=== PATIENT | male | born 1960 | race African-American/Black ===

== ENCOUNTER 2016-07-19 14:08 | Inpatient (IN) | payer OTHER ==
--- NOTE | 2016-07-19 15:26 | PDOC ---
History of Present Illness - General Chief Complaint: Chest Pain Stated Complaint: CHEST PAIN Time Seen by Provider: 07/19/16 14:30 History Source: Patient Exam Limitations: No Limitations - History of Present Illness Initial Comments: 07/19/16 15:45 Patient is a 55 year old male with a PMHx of HTN, HLD, CVA (04/28), alcohol and substance abuse, HIV who is non compliant with medications presents to the ED complaining of right sided chest pain that began last night. Patient describes the pain as sharp intermittent occurring every 2-3 hours lasting for about an hour with a severity of 5/10. Patient admits to taking crack/cocaine every 2 to 3 days with last time being three days ago. He denies shortness of breath, palpitations, diaphoresis He denies fever, chills, nausea, vomiting He denies abdominal pain, diarrhea, constipation He denies headaches, acute visual changes PMHx: HTN, HLD, CVA (04/28), alcohol and substance abuse, HIV PSHx: None MEDS: Refer to ambulatory meds. Allergies: NKDA Social: Smokes 1.5 PPD, crack/cocaine every 2-3 days, denies alcohol use PCP: None Past History - Past Medical History Allergies/Adverse Reactions: Allergies Allergy/AdvReac Type Severity Reaction Status Date / Time No Known Allergies Allergy Verified 07/19/16 14:14 Home Medications: Ambulatory Orders Amlodipine Besylate [Norvasc -] 10 mg PO DAILY #30 tablet 05/21/16 Aspirin Coated [Ecotrin -] 81 mg PO DAILY #30 tablet.ec 05/21/16 Atorvastatin Ca [Lipitor] 20 mg PO HS #30 tablet 05/31/16 Darunavir/Cobicistat [Prezcobix 800 mg-150 mg Tablet] 1 each PO DAILY #30 tablet 05/31/16 Dolutegravir Sodium [Tivicay] 50 mg PO DAILY #30 tablet 05/31/16 Rilpivirine HCl [Edurant] 25 mg PO DAILY #30 tablet 05/31/16 CVA: Yes Diabetes: No HTN: Yes Hypercholesterolemia: Yes - Immunization History Immunization Up to Date: No - Psycho/Social/Smoking Cessation Hx Anxiety: No Suicidal Ideation: No Smoking History: Current every day smoker Have you smoked in the past 12 months: Yes Number of Cigarettes Smoked Daily: 20 Cigars Per Day: 0 'Breaking Loose' booklet given: 08/21/13 Hx Alcohol Use: Yes (no alcohol use since discharged from hospital) Drug/Substance Use Hx: Yes Substance Use Type: Cocaine Hx Substance Use Treatment: No (pt declines) Review of Systems - Review of Systems Constitutional: No: Chills, Diaphoresis, Fever HEENTM: No: Blurred Vision, Double Vision Respiratory: No: Cough, Shortness of Breath, SOB with Exertion, SOB at Rest, Productive cough, Hemoptysis Cardiac (ROS): Yes: Chest Pain (right sided ). No: Edema, Irregular Heart Rate , Lightheadedness, Palpitations, Syncope, Chest Tightness ABD/GI: No: Diarrhea, Nausea, Vomiting : No: Burning, Dysuria, Discharge, Frequency Musculoskeletal: No: Back Pain, Joint Pain Integumentary: No: Erythema, Flushing Neurological: Yes: Numbness, Weakness (left arm). No: Headache, Seizure, Tingling, Tremors Psychiatric: No: Anxiety, Depression Endocrine: No: Intolerance to Cold, Intolerance to Heat Hematologic/Lymphatic: No: Anemia, Blood Clots *Physical Exam - Vital Signs Last Vital Signs Temp Pulse Resp BP Pulse Ox 97.9 F 76 18 134/89 96 07/19/16 14:10 07/19/16 14:10 07/19/16 14:10 07/19/16 14:10 07/19/16 14:10 - Physical Exam General Appearance: Yes: Other (Awake, alert, oriented and in no acute distress ) HEENT: positive: Normal ENT Inspection. negative: Tonsillar Exudate, Tonsillar Erythema Respiratory/Chest: positive: Lungs Clear, Normal Breath Sounds Cardiovascular: positive: Regular Rhythm, Regular Rate, S1, S2. negative: Edema , JVD Gastrointestinal/Abdominal: positive: Normal Bowel Sounds, Soft. negative: Tenderness Extremity: positive: Normal Inspection, Normal Range of Motion Integumentary: positive: Normal Color, Dry, Warm Neurologic: positive: Fully Oriented, Alert, Normal Mood/Affect, Sensory Deficit (right sided upper and lower extremity ), Other (4/5 muscle strength of right upper and lower extremity. 4/5 motor strength of left upper extremity ) Heart Score/ECG Review - History History: Moderately suspicious - Electrocardiogram EKG: Normal - Age Age: 45-65 - Risk Factors Risk Factors Heart Score: Yes Hx Hypercholesterolemia, Yes Hx Hypertension, Yes Smoking History Based on the list above the patient has:: >/=3 risk factors or Hx atherosclerotic disease - Troponin Troponin: </= normal limit - Score Heart Score - Total: 4 - ECG Impressions Comment:: NSR @77 BPM, (-) ST-T elevations or depressions ED Treatment Course - LABORATORY CBC & Chemistry Diagram: 07/19/16 15:30 07/19/16 15:30 - ADDITIONAL ORDERS Additional order review: Laboratory Results 07/19/16 07/19/16 15:30 15:30 Sodium 139 Potassium 4.2 Chloride 104 Carbon Dioxide 28 Anion Gap 7 L BUN 15 D Creatinine 0.9 Creat Clearance w eGFR > 60 Random Glucose 88 Calcium 8.9 Total Bilirubin 0.3 AST 17 D ALT 29 D Alkaline Phosphatase 74 Creatine Kinase 130 Troponin I < 0.02 Total Protein 8.1 Albumin 3.8 07/19/16 15:30 RBC 4.99 MCV 90.7 MCHC 32.6 RDW 13.6 MPV 7.4 L Neutrophils % 59.9 Lymphocytes % 23.2 Monocytes % 14.6 H Eosinophils % 1.1 D Basophils % 1.2 - RADIOLOGY Radiology Studies Ordered: Category Date Time Status HEAD CT (STROKE) [CT] Stat CT Scan 07/19/16 16:38 Completed CHEST X-RAY PORTABLE* [RAD] Stat Radiology 07/19/16 15:26 Completed Medical Decision Making - Medical Decision Making 07/19/16 15:45 Patient is a 55 year old male with a significant PMHx of HTN, HLD, CVA (04/28), HIV who is non compliant with his medications who presents to the ED complaining of nonradiating, intermittent, sharp right sided chest pain that began last night associated with left arm weakness. Differential diagnosis include but not limited to ACS, Acute stroke, Hematoma, hemorrhage, TIA ED Course and Treatment: -CBC -CMP -EKG -Chest x-ray -Cardiac profile 07/19/16 16:48 -Chest x-ray negative for acute pathology -Labs wnl with negative troponins -Patient now complains of left arm weakness -Head CT ordered to rule out acute stroke 07/19/16 18:30 -CT Negative for acute pathology -Patient still complains of left arm weakness -Chest pain resolved -Will call hospitalist 07/19/16 19:00 -Case discussed with hospitalist who accept patient their services *DC/Admit/Observation/Transfer Diagnosis at time of Disposition: Paresthesia and pain of left extremity Chest pain Qualifiers: Chest pain type: unspecified Qualified Code(s): R07.9 - Chest pain, unspecified - Discharge Dispostion Admit: Yes
[2016-07-19 16:34] LABS: BASOPHIL 1.2 % (0-2.0); EOSINOPHIL 1.1 % (0-4.5); MCH 29.6 pg (25.7-33.7); MCHC 32.6 g/dl (32.0-35.9); MEAN CELL VOLUME 90.7 fl (80-96); MEAN PLT VOLUME 7.4 fl (7.5-11.1); NEUTROPHILS 59.9 % (42.8-82.8); PLATELET COUNT 311 K/MM3 (134-434); RDW 13.6 % (11.9-15.9); WHITE BLOOD COUNT 6.1 K/mm3 (4.0-10.0)
[2016-07-19 17:09] VITALS: BMI 23.7
[2016-07-19 17:18] LABS: ALBUMIN 3.8 g/dl (3.4-5.0); ALK PHOS 74 U/L (45-117); ANION GAP 7 (8-16); BILIRUBIN,TOTAL 0.3 mg/dL (0.2-1.0); CALCIUM 8.9 mg/dL (8.5-10.1); CO2 28 mmol/L (21-32); CREATININE 0.9 mg/dL (0.7-1.3); GLUCOSE,RANDOM 88 mg/dL (74-106); SGOT/AST 17 U/L (15-37); SGPT/ALT 29 U/L (12-78); TOT PROT 8.1 g/dl (6.4-8.2); TROPONIN I < 0.02 ng/ml (0.00-0.05)
--- NOTE | 2016-07-19 18:33 | PDOC ---
Attending Attestation - Resident Resident Name: Elvia Ochoaeen - ED Attending Attestation I have performed the following: I have examined & evaluated the patient, The case was reviewed & discussed with the resident, I agree w/resident's findings & plan, Exceptions are as noted - HPI HPI: 55 yo M history HTN, CVA, substance abuse, HIV presents with chest pain radiating down his left arm for the past 3 days. He states that he had a recent stroke with residual R-sided weakness. He has history of medication noncompliance, is not sure if he was supposed to take any additional medication after the stroke. He did not initially seek attention when he developed symptoms in his left arm, but states that he is concerned that it feels numb, and that he might have another stroke. Chest pain does not change with activity. No SOB, cough, N/V, diaphoresis. - Physicial Exam PE: GENERAL: Awake, alert, and fully oriented, in no acute distress HEAD: No signs of trauma EYES: PERRLA, EOMI, sclera anicteric, conjunctiva clear ENT: Auricles normal inspection, hearing grossly normal, nares patent, oropharynx clear without exudates. Moist mucosa NECK: Normal ROM, supple, no lymphadenopathy, JVD, or masses LUNGS: Breath sounds equal, clear to auscultation bilaterally. No wheezes, and no crackles HEART: Regular rate and rhythm, normal S1 and S2, no murmurs, rubs or gallops ABDOMEN: Soft, nontender, normoactive bowel sounds. No guarding, no rebound. No masses EXTREMITIES: Normal range of motion, no edema. No clubbing or cyanosis. No cords , erythema, or tenderness NEUROLOGICAL: Cranial nerves II through XII grossly intact. Normal speech, normal gait SKIN: Warm, Dry, normal turgor, no rashes or lesions noted. - Medical Decision Making Pt is high risk for ACS, CVA based on his past history and social history. Will obtain CXR, EKG, Padma, and CTH. Admit.
--- NOTE | 2016-07-19 19:43 | HP ---
CHIEF COMPLAINT: Chest Pain, Left Upper Arm Weakness PCP: Dr. Cristhian Barrow HISTORY OF PRESENT ILLNESS: This is a 55 year old male with a past medical history of: Hypertension, Hyperlipidemia, CVA (R-residual, 04/2016), HIV (non-compliant HAART), Poly Substance Abuse- Crack Cocaine, Alcohol). Who presents to the Emergency Department with mid-sternal Chest Pain x last night, L- upper arm weakness x 2 weeks. Patient reports using Crack Cocaine and drinking Alcohol- Vodka (pint) 2 days ago. Patient reports the chest pain started at rest non-radiating, sharp in quality. Patient reports constant numbness to his left upper arm for 2 weeks. Patient denies left sided facial droop or numbness to his left lower leg. Patient denies fever, chills, cough, SOB, dizziness, AP, N/V/D, constipation, melena, hematuria, dysuria. ER course was notable for: (1) CT Brain-mild volume loss, focal encephalomalacia in the left periventicular white matter and anterior aspect of the left basal ganglia. No mass lesion, gross acute infarct or intracranial hemorrhage is seen (2) Chest Xray- no acute lung disease (3) Cardiac Enzymes neg x1 Recent Travel: None PAST MEDICAL HISTORY: See HPI PAST SURGICAL HISTORY: See HPI Social History: Smoking: Cigarettes 1PPD Alcohol: Vodka- 1 pint daily (last use 2 days ago) Drugs: Crack Cocaine (last use 2 days ago) Family History: Familial Cardiac History Allergies No Known Allergies Allergy (Verified 07/19/16 14:14) Pt denies allergies HOME MEDICATIONS: Medication Instructions Recorded Amlodipine Besylate [Norvasc -] 10 mg PO DAILY #30 tablet 05/21/16 Aspirin Coated [Ecotrin -] 81 mg PO DAILY #30 tablet.ec 05/21/16 Atorvastatin Ca [Lipitor] 20 mg PO HS #30 tablet 05/31/16 Darunavir/Cobicistat [Prezcobix 1 each PO DAILY #30 tablet 05/31/16 800 mg-150 mg Tablet] Dolutegravir Sodium [Tivicay] 50 mg PO DAILY #30 tablet 05/31/16 Rilpivirine HCl [Edurant] 25 mg PO DAILY #30 tablet 05/31/16 REVIEW OF SYSTEMS CONSTITUTIONAL: Absent: fever, chills, diaphoresis, generalized weakness, malaise, loss of appetite, weight change HEENT: Absent: rhinorrhea, nasal congestion, throat pain, throat swelling, difficulty swallowing, mouth swelling, ear pain, eye pain, visual changes CARDIOVASCULAR: chest pain Absent: syncope, palpitations, irregular heart rate, lightheadedness, peripheral edema RESPIRATORY: Absent: cough, shortness of breath, dyspnea with exertion, orthopnea, wheezing, stridor, hemoptysis GASTROINTESTINAL: Absent: abdominal pain, abdominal distension, nausea, vomiting, diarrhea, constipation, melena, hematochezia GENITOURINARY: Absent: dysuria, frequency, urgency, hesitancy, hematuria, flank pain, genital pain MUSCULOSKELETAL: Absent: myalgia, arthralgia, joint swelling, back pain, neck pain SKIN: Absent: rash, itching, pallor HEMATOLOGIC/IMMUNOLOGIC: Absent: easy bleeding, easy bruising, lymphadenopathy, frequent infections ENDOCRINE: Absent: unexplained weight gain, unexplained weight loss, heat intolerance, cold intolerance NEUROLOGIC: paresthesias Absent: headache, focal weakness, dizziness, unsteady gait, seizure, mental status changes, bladder or bowel incontinence PSYCHIATRIC: Absent: anxiety, depression, suicidal or homicidal ideation, hallucinations. PHYSICAL EXAMINATION Vital Signs - 24 hr 07/19/16 14:10 Temperature 97.9 F Pulse Rate 76 Respiratory 18 Rate Blood Pressure 134/89 O2 Sat by Pulse 96 Oximetry (%) GENERAL: Awake, alert, and fully oriented, in no acute distress. HEAD: Normal with no signs of trauma. EYES: Pupils equal, round and reactive to light, extraocular movements intact, sclera anicteric, conjunctiva clear. No lid lag. EARS, NOSE, THROAT: Ears normal, nares patent, oropharynx clear without exudates. Moist mucous membranes. NECK: Normal range of motion, supple without lymphadenopathy, JVD, or masses. LUNGS: Breath sounds equal, clear to auscultation bilaterally. No wheezes, and no crackles. No accessory muscle use. HEART: Regular rate and rhythm, normal S1 and S2 without murmur, rub or gallop. +Reproducible chest pain on palpation ABDOMEN: Soft, nontender, not distended, normoactive bowel sounds, no guarding, no rebound, no masses. No hepatomegaly or splenomegaly. MUSCULOSKELETAL: Normal range of motion at all joints. No bony deformities or tenderness. No CVA tenderness. UPPER EXTREMITIES: 2+ pulses, warm, well-perfused. No cyanosis. No clubbing. Cap refill <2 seconds. No peripheral edema. LOWER EXTREMITIES: 2+ pulses, warm, well-perfused. No calf tenderness. No peripheral edema. NEUROLOGICAL: Cranial nerves II-XII intact. Normal speech. +weakness to R upper and lower extremities, R- Grasp 3/5, L Grasp 5/5, mild fine tremor to upper hands upon palpation only. Gait not observed. PSYCHIATRIC: Cooperative. Good eye contact. Appropriate mood and affect. SKIN: Warm, dry, normal turgor, no rashes or lesions noted. Laboratory Results - last 24 hr 07/19/16 07/19/16 07/19/16 15:30 15:30 15:30 WBC 6.1 RBC 4.99 Hgb 14.8 Hct 45.2 MCV 90.7 MCHC 32.6 RDW 13.6 Plt Count 311 MPV 7.4 L Neutrophils % 59.9 Lymphocytes % 23.2 Monocytes % 14.6 H Eosinophils % 1.1 D Basophils % 1.2 Sodium 139 Potassium 4.2 Chloride 104 Carbon Dioxide 28 Anion Gap 7 L BUN 15 D Creatinine 0.9 Creat Clearance w eGFR > 60 Random Glucose 88 Calcium 8.9 Total Bilirubin 0.3 AST 17 D ALT 29 D Alkaline Phosphatase 74 Creatine Kinase 130 Troponin I < 0.02 Total Protein 8.1 Albumin 3.8 ASSESSMENT/PLAN: This is a 55 year old male with a past medical history of: HTN, HLD, CVA (R sided residual, 04/2016), HIV (non-complaint HAART). Who presents to the ED with chest pain x 1 day, and left upper numbness x 2 weeks. Admitted to Telemetry for Chest Pain r/o ACS, Numbness to left Arm r/o CVA vs TIA for further evaluation of their emergent condition. Plan: 1. Card: Chest Pain/HTN/HLD - r/o ACS - Tele monitoring - HEART Score 4 - On exam: RRR, S1 S2 noted +reproducible CP on palpation, no MRG - CE neg x1 - Will trend CEx2 - EKG- reviewed - Echo 04/22/16- LVSF- low normal, mild MR, mild TR, mild , mitral valve thickening, no pericardial effusion - Consider Cardiac consult if condition worsens - f/u with Cardiology outpatient - Asa ordered now, will continue - Continue home meds 2. Neuro: CVA vs TIA - Likely secondary to non-compliance vs Illicit Drug Use - Hx recent CVA - CT Brain- mild volume loss, focal encephalomalacia in the left periventicular white matter and anterior aspect of the left basal ganglia no mass lesion, gross acute infarct or intracranial hemorrhage is seen - On exam: +residual weakness to right side noted (chronic). Right Grasp 3/5, Left Grasp 5/5, Left upper arm-+strength, no drift - RD consult - Swallow eval - HgbA1c - Continue Asa - HOB 15 degrees - Fall Precautions - PT - f/u with neuro outpatient / patient reports symptoms started 2 weeks ago 3. Immuno: HIV - non-compliance - Patient counseled on risks and dangers of drug holiday, patient verbalized understanding - Will re-start home med regimen - f/u with ID outpatient for medical management 4. Poly-Substance Abuse - Crack Cocaine, Alcohol use q2-3 days per patient - Last use 2 days - Patient counseled, patient is amendable to treatment - Appreciate Detox Consult - CIWA Scale 1 - Librium prn 5. Tobacco Dependency - Smoking Cessation discussed, patient is agreeable - Nicoderm Patch 5. F/E/N - NS@75ml/hr - Replete lytes prn - NPO 6. DVT/PPI Prophylaxis - OOB - SCDs - Lovenox SQ - PPI Code Status: Patient is a Full Code Problem List - Problem (1) Chest pain Code(s): R07.9 - CHEST PAIN, UNSPECIFIED Qualifiers: Chest pain type: unspecified Qualified Code(s): R07.9 - Chest pain, unspecified (2) Paresthesia and pain of left extremity Code(s): M79.609 - PAIN IN UNSPECIFIED LIMB R20.2 - PARESTHESIA OF SKIN (3) H/O: CVA (cerebrovascular accident) Code(s): Z86.73 - PRSNL HX OF TIA (TIA), AND CEREB INFRC W/O RESID DEFICITS (4) Cocaine abuse, continuous Code(s): F14.10 - COCAINE ABUSE, UNCOMPLICATED (5) Alcohol dependence Code(s): F10.20 - ALCOHOL DEPENDENCE, UNCOMPLICATED (6) Dyslipidemia Code(s): E78.5 - HYPERLIPIDEMIA, UNSPECIFIED (7) Hypertension Code(s): I10 - ESSENTIAL (PRIMARY) HYPERTENSION (8) HIV (human immunodeficiency virus infection) Code(s): Z21 - ASYMPTOMATIC HUMAN IMMUNODEFICIENCY VIRUS INFECTION STATUS (9) Tobacco dependence Code(s): F17.200 - NICOTINE DEPENDENCE, UNSPECIFIED, UNCOMPLICATED (10) DVT prophylaxis Code(s): WBL9179 - Visit type - Emergency Visit Emergency Visit: Yes ED Registration Date: 07/19/16 Care time: The patient presented to the Emergency Department on the above date and was hospitalized for further evaluation of their emergent condition. - New Patient This patient is new to me today: Yes Date on this admission: 07/19/16 - Critical Care Critical Care patient: No
[2016-07-19] MEDS ORDERED: ASPIRIN 81 MG CHEWABLE TABLETS PO ONE (19:46)
[2016-07-19] MEDS ORDERED: ASPIRIN 325 MG TABLET ONE (20:02)
[2016-07-20] MEDS ORDERED: chlordiazePOXIDE HCL 25 MG CAPSULE PO PRN (01:56)
[2016-07-20] MEDS ORDERED: SODIUM CHLORIDE 1,000 ML IV SCH (02:00)
[2016-07-20] MEDS ORDERED: chlordiazePOXIDE HCL 25 MG CAPSULE PO SCH (05:00)
[2016-07-20] MEDS ORDERED: chlordiazePOXIDE HCL 25 MG CAPSULE ONE (05:07)
[2016-07-20 07:44] LABS: BASOPHIL 1.2 % (0-2.0); EOSINOPHIL 1.8 % (0-4.5); MCH 30.3 pg (25.7-33.7); MCHC 33.6 g/dl (32.0-35.9); MEAN CELL VOLUME 90.3 fl (80-96); MEAN PLT VOLUME 7.4 fl (7.5-11.1); NEUTROPHILS 51.3 % (42.8-82.8); PLATELET COUNT 291 K/MM3 (134-434); RDW 13.3 % (11.9-15.9)
[2016-07-20 07:55] LABS: ANION GAP 7 (8-16); CALCIUM 8.3 mg/dL (8.5-10.1); CHOLESTEROL 215 mg/dL (50-200); CO2 29 mmol/L (21-32); GLUCOSE,RANDOM 88 mg/dL (74-106); LDL CHOLESTEROL (ONLY SJRH) 144 mg/dL (5-100); MAGNESIUM 2.3 mg/dL (1.8-2.4); PHOSPHOROUS 4.6 mg/dL (2.5-4.9)
[2016-07-20 08:04] LABS: THYROID STIMULATING HORMONE 0.52 uIU/ml (0.358-3.74); TROPONIN I < 0.02 ng/ml (0.00-0.05)
[2016-07-20] MEDS ORDERED: ENOXAPARIN NA (PORCINE) 40 MG/0.4 ML DISP.SYRIN SQ SCH (10:00)
[2016-07-20] MEDS ORDERED: NICOTINE 14 MG/24 HOURS TOPICAL PATCH TD SCH (10:00)
[2016-07-20] MEDS ORDERED: ASPIRIN 325 MG TABLET PO SCH ×2 (10:00)
--- NOTE | 2016-07-20 10:32 | EKG ---
Test Reason : Blood Pressure : / mmHG Vent. Rate : 077 BPM Atrial Rate : 077 BPM P-R Int : 154 ms QRS Dur : 108 ms QT Int : 400 ms P-R-T Axes : 073 -25 029 degrees QTc Int : 452 ms NORMAL SINUS RHYTHM POSSIBLE LEFT ATRIAL ENLARGEMENT BORDERLINE ECG WHEN COMPARED WITH ECG OF 21-APR-2016 21:23, NO SIGNIFICANT CHANGE WAS FOUND Confirmed by JULIANA MAZARIEGOS MD ([id number]) on 07/20/2016 10:32:34 AM Referred By: Confirmed By:JULIANA MAZARIEGOS MD
[2016-07-20 11:39] LABS: INR 1.07 (0.82-1.09); PROTHROMBIN TIME (PATIENT) 11.8 SEC (9.98-11.88)
--- NOTE | 2016-07-20 11:48 | PN ---
Physical Exam: SUBJECTIVE: Patient seen and examined in ED. Pt states his cp is down the middle. He has been feeling numbness to LUE for 2 weeks. He does not want to go to rehab at [facility], he wants to go to [facility]. OBJECTIVE: Vital Signs Period Temp Pulse Resp BP Sys/Valentin Pulse Ox Last 24 Hr 98.9 F 68 18 124/78 96 PE Neuro: alert, awake, cn 2-12intact, RUE 3/5 motor, LUE paresthesia HEENT: pressured speech Pulm: CTAB CV: reproducible mid sternal cp, s1 s2 rrr no mrg Abd: s nt nd +bs Ext: warm, no le edema CBCD WBC 5.0 K/mm3 (4.0-10.0) 07/20/16 06:00 RBC 4.59 M/mm3 (4.00-5.60) 07/20/16 06:00 Hgb 13.9 GM/dL (11.7-16.9) 07/20/16 06:00 Hct 41.5 % (35.4-49) 07/20/16 06:00 MCV 90.3 fl (80-96) 07/20/16 06:00 MCHC 33.6 g/dl (32.0-35.9) 07/20/16 06:00 RDW 13.3 % (11.9-15.9) 07/20/16 06:00 Plt Count 291 K/MM3 (134-434) 07/20/16 06:00 MPV 7.4 fl (7.5-11.1) L 07/20/16 06:00 CMP Sodium 142 mmol/L (136-145) 07/20/16 06:00 Potassium 4.3 mmol/L (3.5-5.1) 07/20/16 06:00 Chloride 106 mmol/L (98-107) 07/20/16 06:00 Carbon Dioxide 29 mmol/L (21-32) 07/20/16 06:00 Anion Gap 7 (8-16) L 07/20/16 06:00 BUN 15 mg/dL (7-18) 07/20/16 06:00 Creatinine 1.0 mg/dL (0.7-1.3) 07/20/16 06:00 Creat Clearance w eGFR > 60 (>60) 07/19/16 15:30 Random Glucose 88 mg/dL (74-106) 07/20/16 06:00 Calcium 8.3 mg/dL (8.5-10.1) L 07/20/16 06:00 Total Bilirubin 0.3 mg/dL (0.2-1.0) 07/19/16 15:30 AST 17 U/L (15-37) D 07/19/16 15:30 ALT 29 U/L (12-78) D 07/19/16 15:30 Alkaline Phosphatase 74 U/L (45-117) 07/19/16 15:30 Total Protein 8.1 g/dl (6.4-8.2) 07/19/16 15:30 Albumin 3.8 g/dl (3.4-5.0) 07/19/16 15:30 Creatine Kinase 93 IU/L (39-308) 07/20/16 06:00 Troponin I < 0.02 ng/ml (0.00-0.05) 07/20/16 06:00 07/20/16 07/20/16 07/20/16 02:20 06:00 06:00 Hemoglobin A1c % 6.1 H D Creatine Kinase 105 93 Troponin I < 0.02 < 0.02 Triglycerides 170 H D Cholesterol 215 H Total LDL Cholesterol 144 H D HDL Cholesterol 33 L TSH 0.52 D Active Medications Generic Name Dose Route Start Last Admin Trade Name Freq PRN Reason Stop Dose Admin Aspirin 81 mg 07/20/16 10:00 Asa - PO DAILY NESHA Chlordiazepoxide HCl 25 mg 07/20/16 01:56 Librium - PO 07/23/16 01:55 Q4H PRN WITHDRAWAL(CONT SUBST) Enoxaparin Sodium 40 mg 07/20/16 10:00 Lovenox - SQ DAILY NESHA Sodium Chloride 1,000 mls @ 75 mls/hr 07/20/16 02:00 07/20/16 03:17 Normal Saline - IV 75 mls/hr ASDIR NESHA Administration Nicotine 14 mg 07/20/16 10:00 Nicoderm Patch - TD DAILY NESHA Assessment: 55 year old male with HTN, HLD, CVA (R-residual, 04/2016), HIV (non- compliant HAART), Poly Substance Abuse- Crack Cocaine, Alcohol) admitted with mid sternal CP and LUE numbness x 2 weeks. Plan: 1. Chest pain - Reproducible on exam, does not refer - r/o MT, serial trops negative - Tylenol prn - Counseled pt to abstain for further cocain use 2. LUE paresthesia - Pt denies recent trauma - Motor and sensory abilities are not impaired - Will need to follow up with neurologist as outpt, referral enclosed 3. HIV - Pt states the [facility] is aware he does not take his meds, he was recently seen there, he was counseled then and now to take them, he understands 4. Substance abuse - No signs of withdrawal at this time - Libirum PRN - Urine tox pending - Pt agreeable to rehab, does not want [facility] - nicotine patch 5. s/p CVA 04/28 - Cont ASA - Head CT negative for acute pathology at this time 6. HTN - Controlled - Norvasc 10mg Dispo: - Pt is medically stable to continue forward with rehabilitation, once completed he will need follow up with PCP and neurologist (referrals enclosed) Visit type - Emergency Visit Emergency Visit: Yes ED Registration Date: 07/19/16 Care time: The patient presented to the Emergency Department on the above date and was hospitalized for further evaluation of their emergent condition. - New Patient This patient is new to me today: Yes Date on this admission: 07/20/16 - Critical Care Critical Care patient: No
--- NOTE | 2016-07-20 12:52 | CONSULT ---
Admitting History and Physical - Past Medical History TOUCH UP PAINTER HAND: Yes: CVA Cardiovascular: Yes: HTN, Hyperlipdemia Infectious Disease: Yes: HIV (possible noncompliance to HAART therapy) - Smoking History Smoking history: Current every day smoker Have you smoked in the past 12 months: Yes Aproximately how many cigarettes per day: 20 - Alcohol/Substance Use Hx Alcohol Use: Yes (no alcohol use since discharged from hospital) History of Substance Use: reports: Cocaine, Marijuana History - Admission Reason For Visit: CHEST PAIN/PARASTHEIS AND PAIN Speech Evaluation - Communication Primary Language: DANISH Communication: Yes: Aphasia (Expressive aphasia) Oral Expression Ability: Yes: Moderate Impairment - Speech Production Dysarthria: Yes: Ataxic Apraxia: Yes Able to Make Needs Known: Yes: Mildly Impaired (able to communicate but with revisions to speech) Intelligibility: Yes: Mildly Impaired (able to communicate but with revisions to speech) - Speech Characteristics Voice Loudness: Normal Voice Pitch: Yes: Normal Voice Phonatory-based Quality: Yes: Normal Speech Pattern: Impaired Speech Clarity: < 75% Nasal Resonance: Normal Articulation: Yes: Imprecise Dysfluency: Yes: Tonic Rate of Speech: Too Fast Voice Comment: vocal quality is WFL. Speech production is affected secondary to CVA - Language/Auditory Comprehension Observation: Able to respond to yes/no queries: Yes, Yes/No Confusion: No, Comprehends Conversational Speech: Yes, Benefits from Slow Speech: No, Benefits from Repetiton: No, Benefits from Increased Volume of Speech: No - Language/Verbal Expression Aphasia: Yes: Apraxia Able to Respond to Simple Queries: Yes: WNL Able to Communicate Wants and Needs: Yes: Mildly Impaired (with revisions) Functional Communication Status: Yes: Mildly Impaired Aware of Errors: Yes Attempts to Correct Errors: Yes Use of Gestures: No Written Expression: not examined Oral Expression: apraxic speech pattern observed. Pt is able to self correct with revisions. Reading Comprehension: Not examined Calculations: Not examined Attention: Yes: Intact - Memory/Perception [facility] Memory: Yes: WNL Short Term Memory: Yes: WNL Hemaniopsia: Yes: Left (Reported weakness but not observed during this session.) - Swallow Evaluation/Bedside Assessment Current Nutritional Intake: Regular, Thin Liquids Oral Secretions: Yes: WFL Tracheostomy Present: No Patient on Ventilator: No Dentition: Yes: Adequate Facial Symmetry at Rest: Symmetrical Facial Symmetry on Retraction: Symmetrical Facial Movement: Controlled Sensation: Normal Facial Comment: WFL for speech and swallow purposes. Jaw Position: Closed at Rest Against Resistance Opening: Normal Against Resistance Closing: Normal Pucker Lips: Normal Smile: Normal Lips, Comment: WFL for speech and swallow purposes. Lingual Movement: Normal Lingual Speed of Movement: Normal Lingual Movement Strgth Against Opposition: Normal Lingual Movement Characteristics: Normal Lingual Comment: WFL for speech and swallow purposes. Soft Palate Description: Normal Color, Normal Arch Hard Palate Description: Normal Color, Normal Arch Gag Reflex: Strong Velopharyngeal Movement: Normal Laryngeal Elevation: WFL Laryngeal Movement: Able to Palpate Needs Assistance: No Rate of Intake: WFL Bolus Size: WFL A-P Transit: WFL Pocketing: None Timing of Swallow: WFL Coughing/Throat Clear: No Change in Voice: No Other Findings/Remarks: 55 year old male seen in ER for speech evaluation. Pt seen for chest pain and numbness of ULE. 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 Pt is verbal A&Ox3 cooperative. Pt is concerned about speech production. Vocal Quality and airwary protection are WFL. Pt presents with aphasia apraxic / dysfluent speech. Able to communicate single words but has difficulty with sentences characterized by multiple revisions, initial phoneme / syllable prolongations. Pt states that this pattern began with the first CVA in April 2016. Recommendations - Speech Evaluation, Impression/Plan Impression: Pt presents with mild speech production difficulties (expressive aphasia apraxic, dysfluent). Pt does not demonstrate dysphagia at this time. Speech rate is rapid but pt is able to slow down with visual cues. Pt does auto correct speech with revisions. Pt may benefit from speech intervention ( expressive aphasia therapy). - Dysphagia Impressions/Plan Swallowing Skills: WFL Dysphagia Impressions: No Impairment Dysphagia Evaluation Summary: No dysphagia observed. Pt is consuming regular solids and thin liquids without difficulty. Recommendations: Neuro Consult - Recommendations Diet Consistency: Regular Medication Administration: Whole with water Liquids: Thin Liquids
[2016-07-20] MEDS ORDERED: amLODIPine BESYLATE 10 MG TABLET (FP) PO SCH (13:15)
[2016-07-20] MEDS ORDERED: ASPIRIN COATED 81 MG TABLET.EC PO SCH (13:15)
[2016-07-20 14:05] LABS: URINE MARIJUANA THC POSITIVE ng/ml (CUTOFF=50)
[2016-07-20] MEDS ORDERED: amLODIPine BESYLATE 5 MG TABLET (FP) ONE (14:20)
[2016-07-20 15:08] VITALS: BP 124/73; PULSE 74; TEMP 97.4
--- NOTE | 2016-07-20 18:12 | DS ---
Physical Exam: SUBJECTIVE: Patient seen and examined. He wants to go to rehab OBJECTIVE: Vital Signs Period Temp Pulse Resp BP Sys/Valentin Pulse Ox Last 24 Hr 97.4 F-98.9 F 68-86 14-18 124-137/73-101 96-99 PE Neuro: alert, awake, cn 2-12intact, RUE 3/5 motor, LUE paresthesia HEENT: pressured speech Pulm: CTAB CV: reproducible mid sternal cp, s1 s2 rrr no mrg Abd: s nt nd +bs Ext: warm, no le edema Laboratory Results - last 24 hr 07/19/16 07/20/16 07/20/16 21:20 02:20 06:00 WBC 5.0 RBC 4.59 Hgb 13.9 Hct 41.5 MCV 90.3 MCHC 33.6 RDW 13.3 Plt Count 291 MPV 7.4 L Neutrophils % 51.3 Lymphocytes % 31.1 D Monocytes % 14.6 H Eosinophils % 1.8 Basophils % 1.2 INR Sodium Potassium Chloride Carbon Dioxide Anion Gap BUN Creatinine Random Glucose Hemoglobin A1c % Calcium Phosphorus Magnesium Creatine Kinase Cancelled 105 Troponin I Cancelled < 0.02 Triglycerides Cholesterol Total LDL Cholesterol HDL Cholesterol TSH Opiates Screen Methadone Screen Barbiturate Screen Phencyclidine Screen Ur Amphetamines Screen MDMA (Ecstasy) Screen Benzodiazepines Screen Cocaine Screen U Marijuana (THC) Screen 07/20/16 07/20/16 07/20/16 06:00 06:00 11:00 WBC RBC Hgb Hct MCV MCHC RDW Plt Count MPV Neutrophils % Lymphocytes % Monocytes % Eosinophils % Basophils % INR 1.07 Sodium 142 Potassium 4.3 Chloride 106 Carbon Dioxide 29 Anion Gap 7 L BUN 15 Creatinine 1.0 Random Glucose 88 Hemoglobin A1c % 6.1 H D Calcium 8.3 L Phosphorus 4.6 D Magnesium 2.3 Creatine Kinase 93 Troponin I < 0.02 Triglycerides 170 H D Cholesterol 215 H Total LDL Cholesterol 144 H D HDL Cholesterol 33 L TSH 0.52 D Opiates Screen Methadone Screen Barbiturate Screen Phencyclidine Screen Ur Amphetamines Screen MDMA (Ecstasy) Screen Benzodiazepines Screen Cocaine Screen U Marijuana (THC) Screen 07/20/16 12:55 WBC RBC Hgb Hct MCV MCHC RDW Plt Count MPV Neutrophils % Lymphocytes % Monocytes % Eosinophils % Basophils % INR Sodium Potassium Chloride Carbon Dioxide Anion Gap BUN Creatinine Random Glucose Hemoglobin A1c % Calcium Phosphorus Magnesium Creatine Kinase Troponin I Triglycerides Cholesterol Total LDL Cholesterol HDL Cholesterol TSH Opiates Screen Negative Methadone Screen Negative Barbiturate Screen Negative Phencyclidine Screen Negative Ur Amphetamines Screen Negative MDMA (Ecstasy) Screen Negative Benzodiazepines Screen Negative Cocaine Screen Positive U Marijuana (THC) Screen Positive HOSPITAL COURSE: Date of Admission:07/19/16 Date of Discharge: 07/20/16 Minutes to complete discharge: 35 Discharge Summary Reason For Visit: CHEST PAIN/PARASTHEIS AND PAIN Current Active Problems Acute chest pain (Acute) Chest pain (Acute) DVT prophylaxis (Acute) H/O: CVA (cerebrovascular accident) (Acute) Paresthesia and pain of left extremity (Acute) Alcohol dependence (Chronic) Cocaine abuse, continuous (Chronic) Dyslipidemia (Chronic) HIV (human immunodeficiency virus infection) (Chronic) Hypertension (Chronic) Hospital Course: Initial Hospital Course: Briefly, this 55 year old male with a past medical history of: Hypertension, Hyperlipidemia, CVA (R-residual, 04/2016), HIV (non-compliant HAART), Poly Substance Abuse- Crack Cocaine, Alcohol) presented with mid-sternal Chest Pain x last night, L- upper arm weakness x 2 weeks. Patient reported using Crack Cocaine and drinking Alcohol- Vodka (pint) 2 days ago. The chest pain started at rest non-radiating, sharp in quality. Additionally, he reported constant numbness to his left upper arm for 2 weeks. Patient denies left sided facial droop or numbness to his left lower leg. Subsequent Hospital Course/Progress Note/Discharge Summary by a/p: Assessment: 55 year old male with HTN, HLD, CVA (R-residual, 04/2016), HIV (non- compliant HAART), Poly Substance Abuse- Crack Cocaine, Alcohol) admitted with mid sternal CP and LUE numbness x 2 weeks. Plan: 1. Chest pain - Reproducible on exam, does not refer - r/o NM, serial trops negative - Tylenol prn - Counseled pt to abstain for further cocain use 2. LUE paresthesia - Pt denies recent trauma - Motor and sensory abilities are not impaired - Will need to follow up with neurologist as outpt, referral enclosed 3. HIV - Pt states the [facility] is aware he does not take his meds, [facility] reported pt picked up his meds on 06/29 they cannot dispense more. - Pt reported to case managment he does take it, then said the medications are at his house and no one can get them - Rehab facility will not take him without his HARRT meds as they do not have them at their facility at this time 4. Substance abuse - No signs of active withdrawal at this time - Libirum PRN - Urine tox pending - Pt agreeable to rehab, does not want [facility] - nicotine patch 5. s/p CVA 04/28 - Cont ASA - Head CT negative for acute pathology at this time 6. HTN - Controlled - Norvasc 10mg Dispo: - Pt is non complaint at baseline. It was discussed with patient he will take cab home and warehouse order picker his HARRT medications and then instructed to go to [facility] rehab facility voluntarily, they have a bed available for him. - Pt agrees to plan and is discharge home with pcp and neuro referral for when he returns - Instructions Diet, Activity, Other Instructions: Please return to the ED for any new, persistent, or worsening symptoms. Follow up with your PCP in 1 week Take home medications as directed You will need to follow up with Neurology after rehab for left arm numbness and follow your stroke Referrals: Cristhian Barrow [Primary Care Provider] - Michelle Godinez MD [Staff Physician] - - Home Medications Comprehensive Discharge Medication List: Ambulatory Orders Amlodipine Besylate [Norvasc -] 10 mg PO DAILY #30 tablet 05/21/16 Aspirin Coated [Ecotrin -] 81 mg PO DAILY #30 tablet.ec 05/21/16 Atorvastatin Ca [Lipitor] 20 mg PO HS #30 tablet 05/31/16 Darunavir/Cobicistat [Prezcobix 800 mg-150 mg Tablet] 1 each PO DAILY #30 tablet 07/20/16 Dolutegravir Sodium [Tivicay] 50 mg PO DAILY #30 tablet 07/20/16 Rilpivirine HCl [Edurant] 25 mg PO DAILY #30 tablet 07/20/16 This patient is new to me today: Yes Date on this admission: 07/20/16 Emergency Visit: Yes ED Registration Date: 07/19/16 Care time: The patient presented to the Emergency Department on the above date and was hospitalized for further evaluation of their emergent condition. Critical Care patient: No - Discharge Referral Referred to [facility] No
[2016-07-20] MEDS ORDERED: ATORVASTATIN CA 20 MG TABLET (FP) PO SCH (22:00)
[2016-07-21] MEDS ORDERED: chlordiazePOXIDE HCL 25 MG CAPSULE PO SCH (05:00)
[2016-07-21] MEDS ORDERED: RILPIVIRINE HCL 25 MG TABLET PO SCH (10:00)
[2016-07-22] MEDS ORDERED: chlordiazePOXIDE 5 MG CAPSULE PO SCH (05:00)
== END 2016-07-20 19:15 | disposition home or self-care (01) | DRG 203 ==
LOC: JER 14:08 → JERBED 20:39
PROVIDERS: ADMIT Internal Medicine; ATTEND Nurse Practitioner Family
DX: R07.89 Other chest pain (principal); I10 Essential (primary) hypertension; E78.5 Hyperlipidemia, unspecified; F17.210 Nicotine dependence, cigarettes, uncomplicated; M79.609 Pain in unspecified limb; R20.2 Paresthesia of skin; F10.20 Alcohol dependence, uncomplicated; F14.10 Cocaine abuse, uncomplicated; Z91.14 Patient's other noncompliance with medication regimen; Z21 Asymptomatic human immunodeficiency virus [HIV] infection status; Z86.73 Personal history of transient ischemic attack (TIA), and cerebral infarction without residual deficits
CPT/HCPCS: 36415; 70450-TC; 71010-TC; 80048; 80053; 80061; 80307; 82550; 83036; 83721; 83735; 84100; 84443; 84484; 85025; 85610; 93005; 93010; 99285-25; G0463-25

== ENCOUNTER 2023-06-08 19:01 | Observation (INO) | payer OTHER ==
[2023-06-08 19:24] VITALS: BMI 27.5
[2023-06-08 20:53] LABS: BASO % 0.6 % (0-2.0); EOS % 0.5 % (0-4.5); HEMATOCRIT 46.8 % (35.4-49); HEMOGLOBIN 15.7 GM/dL (11.7-16.9); LYMPH % 8.8 % (8-40); MCH 29.9 pg (25.7-33.7); MCHC 33.5 g/dl (32.0-35.9); MEAN CELL VOLUME 89.2 fl (80-96); MEAN PLT VOLUME 7.1 fl (7.5-11.1); MONO % 11.3 % (3.8-10.2); NEUT % 78.8 % (42.8-82.8); PLATELET COUNT 294 10^3/uL (134-434); RBC 5.25 M/mm3 (4.00-5.60); RDW 13.7 % (11.9-15.9); WHITE BLOOD COUNT 8.9 K/mm3 (4.0-10.0)
[2023-06-08 21:01] LABS: INR 1.08 (0.83-1.09); PROTHROMBIN TIME (PATIENT) 12.5 SEC (9.7-13.0)
[2023-06-08 21:03] LABS: ACTIVATED PTT 31.3 SECONDS (25.2-36.5)
[2023-06-08 21:12] LABS: POTASSIUM 4.3 mmol/L (3.5-5.1)
[2023-06-08 21:14] LABS: ALBUMIN 4.2 g/dl (3.4-5.0); CALCIUM 9.3 mg/dL (8.5-10.1)
[2023-06-08 21:15] LABS: BLOOD UREA NITROGEN 17.4 mg/dL (7-18)
[2023-06-08 21:19] LABS: BILIRUBIN,TOTAL 0.3 mg/dL (0.2-1); TOT PROT 7.7 g/dl (6.4-8.2)
[2023-06-09] MEDS ORDERED: SODIUM CHLORIDE 0.9% 500 ML INFUS.BAG IV ONE (00:14)
[2023-06-09 02:45] LABS: EPI CELLS 20 /uL (0-25.1); HYALINE CASTS 22 /uL (0-3.1); PH,URINE 5.5 (5.0-8.0); URINE APPEARANCE CLOUDY; URINE BACTERIA 11 /uL (0-1359); URINE BILIRUBIN 1+ (NEGATIVE); URINE COLOR DK YELLOW; URINE GLUCOSE (UA) NEGATIVE (NEGATIVE); URINE KETONE TRACE (NEGATIVE); URINE LEUK ESTERASE NEGATIVE (NEGATIVE); URINE NITRITE NEGATIVE (NEGATIVE); URINE PROTEIN 1+ (NEGATIVE); URINE RBC 40 /uL (0-23.9); URINE WBC 30 /uL (0-25.8)
[2023-06-09] MEDS ORDERED: DOCUSATE SODIUM 100 MG CAPSULE (FP) PO PRN (03:15)
[2023-06-09] MEDS ORDERED: SODIUM CHLORIDE 0.45% 1,000 ML IV SCH (03:30)
[2023-06-09] MEDS ORDERED: CEFTRIAXONE 1,000 MG in DEXTROSE 5%-WATER - 50 ML IVPB ONE (05:14)
[2023-06-09] MEDS ORDERED: CEFTRIAXONE 1 GM/50 ML BAG ONE (05:27)
[2023-06-09 08:24] LABS: HEMATOCRIT 44.6 % (35.4-49); HEMOGLOBIN 14.5 GM/dL (11.7-16.9); MCH 29.6 pg (25.7-33.7); MCHC 32.4 g/dl (32.0-35.9); MEAN CELL VOLUME 91.2 fl (80-96); MEAN PLT VOLUME 7.7 fl (7.5-11.1); PLATELET COUNT 280 10^3/uL (134-434); RBC 4.89 M/mm3 (4.00-5.60); RDW 13.6 % (11.9-15.9); WHITE BLOOD COUNT 6.2 K/mm3 (4.0-10.0)
[2023-06-09] MEDS ORDERED: AZITHROMYCIN IVPB 500 MG/250 ML BAG IVPB ONE (08:52)
[2023-06-09 08:59] VITALS: PULSE 80
[2023-06-09] MEDS ORDERED: LACTATED RINGERS SOLUTION 1,000 ML/1,000 ML INFUS.BAG IV SCH (09:45)
[2023-06-09] MEDS ORDERED: AZITHROMYCIN IVPB 500 MG in DEXTROSE 5%-WATER - 250 ML IVPB SCH (10:00)
[2023-06-09 10:37] LABS: ANISOCYTOSIS 1+; MACROCYTOSIS 0; OVALOCYTE 1+
[2023-06-09 11:50] VITALS: BP 140/71; RESP 18; TEMP 99.1
[2023-06-10] MEDS ORDERED: CEFTRIAXONE 1 GM in DEXTROSE 5%-WATER - 50 ML IVPB SCH (10:00)
[2023-06-10] MEDS ORDERED: AZITHROMYCIN IVPB 500 MG/250 ML BAG IVPB SCH (10:00)
== END 2023-06-09 15:51 | disposition home or self-care (01) ==
LOC: JER 19:01 → INTOOBSV 06-09 01:45 → JERBED 06-09 01:45
PROVIDERS: ADMIT Internal Medicine; ATTEND Internal Medicine
PROC: 3E03329 Introduction of Other Anti-infective into Peripheral Vein, Percutaneous Approach (ICD-10-PCS; principal; 2023-06-09)
PROC: 3E0337Z Introduction of Electrolytic and Water Balance Substance into Peripheral Vein, Percutaneous Approach (ICD-10-PCS; 2023-06-09)
DX: R55 Syncope and collapse (principal); F19.10 Other psychoactive substance abuse, uncomplicated; F10.99 Alcohol use, unspecified with unspecified alcohol-induced disorder; F12.90 Cannabis use, unspecified, uncomplicated; N18.9 Chronic kidney disease, unspecified; R53.81 Other malaise; B20 Human immunodeficiency virus [HIV] disease; E78.00 Pure hypercholesterolemia, unspecified; Z86.73 Personal history of transient ischemic attack (TIA), and cerebral infarction without residual deficits; Z72.0 Tobacco use
CPT/HCPCS: 0241U-QW; 36415; 70450-TC; 71045-TC-FY; 71250-TC; 80053; 81003; 84484; 85025; 85610; 85730; 93005; 93010; 96361; 96365; 96366; 99285-25; G0378